=== PATIENT | male | born 2000 | race Caucasian/White ===

== ENCOUNTER 2020-06-12 07:08 | Day surgery (SDC) | payer OTHER, SELFPAY ==
[2020-06-12] VITALS (8 sets, daily range): BP systolic 127–162; BP diastolic 68–78; PULSE 60–75; RESP 15–16; TEMP 36.5–37; O2SAT 98–100; BMI 23.3
--- NOTE | 2020-06-12 | TUR_PTH ---
PATIENT: JENNIFER MARIE LOC: [facility] [place] U#:[id number] AGE/SX: 20/M ROOM: RE06/12/[address]: Dr. Misha Garcia MD : [id number] BED: DIS: 06/12/2020 SPEC #: [id number] RECD: 06/12/20 13:03 STATUS: EDILIA BECCA #: [id number] LILLY: 06/12/20 00:[address]: Misha Garcia DEPT: SURGICAL PATHOLOGY RECD BY: Enzo Galicia Tissues: Nasal turbinate, NOS Procedures: Decalcification bone/plaque Surgery Specimen Level III HEADER OPERATION: Septoplasty, resection inferior turbinates PRE-OP DIAGNOSIS: Deviated nasal septum; hypertrophy nasal turbinates; obstructive sleep apnea syndrome TISSUE SUBMITTED: Inferior turbinates MICROSCOPIC DIAGNOSIS Inferior turbinates, excision: Fragments of osseocartilaginous tissue with reparative change. AM:nanette 06/17/20 MICROSCOPIC DESCRIPTION Slides are reviewed. GROSS DESCRIPTION Received in fixative is one container labeled with the patient's name and designated inferior turbinates, nasal septal contents. The specimen consists of multiple fragments of cartilage and bone that in aggregate measure 5 x 3 x 0.3 cm. Also present in the cloth bag are scant fragments of umana soft tissue measuring 0.2 x 0.1 x <0.1 cm. The entire specimen is submitted in two cassettes after decalcification. / SJ:nanette 06/12/20 TC: 5 CPT: 66984, 68750
[2020-06-12] MEDS: Lidocaine 4% 50 ML Bottle (07:28)
[2020-06-12] MEDS: Lactated Ringers 1,000 ML 100 ML IV ×2 (07:39→11:02)
[2020-06-12 07:50] LABS: Hemoglobin 15.3 g/dL (13.0-16.5); Mean Corp Hgb Conc 32.6 g/dL (32-36); Mean Corpuscular Hgb 27.4 pg (27.0-32.0); Mean Corpuscular Volume 84.2 fL (80-94); Platelet Count 249 K/mm3 (150-450); RBC Distribution Width CV 12.2 % (11.6-14.6); RBC Distribution Width SD 37.2 fl (35.1-43.9); Red Blood Count 5.58 M/mm3 (4.6-6.2)
--- NOTE | 2020-06-12 08:17 | EKG12_ITS ---
Test Reason : PREOP Blood Pressure : / mmHG Vent. Rate : 066 BPM Atrial Rate : 066 BPM P-R Int : 134 ms QRS Dur : 112 ms QT Int : 410 ms P-R-T Axes : 065 030 055 degrees QTc Int : 429 ms Normal sinus rhythm with sinus arrhythmia Normal ECG No previous ECGs available Confirmed by RASHID FUNK ([id number]), video editor ANDREY GAN ([id number]) on 06/15/2020 12:44:22 PM Referred By: Misha Garcia Confirmed By:RASHID FUNK
[2020-06-12] MEDS: Oxymetazoline 0.05% 1 SPRAY SPRAY.BTL 15 SPRAY (09:28)
[2020-06-12] MEDS: Bacitracin 500 UNITS/GM PACKET (09:40)
--- NOTE | 2020-06-12 10:10 | DCINST_ITS ---
You will use the following diet at home:: No restrictions Your food should be the consistency of: Regular Discharge Activity: Return to Normal Activity, May not drive while taking narcotic pain medications. Call your doctor if your incision/area has: Sudden Increased Bleeding Call your doctor if you observe: Fever of 101 or Higher, Uncontrolled pain Allergies/Adverse Reactions: Allergies ceftriaxone [From Rocephin] Allergy (Verified 06/12/20 07:21) Rash Medications to take at Discharge NK 06/03/20 Primary Care Physician: JUAN KUMARI [Other] Test Results: Test results from this visit will be discussed in further detail at your follow- up appointment, if applicable. Please Follow Up With: Misha Garcia MD When: 5 days
--- NOTE | 2020-06-12 10:11 | PCM.OPRPT ---
Problem List (1) Deviated nasal septum Status: Chronic (2) Hypertrophy of both inferior nasal turbinates Status: Chronic Report of Operation Date of Procedure: 06/12/20 Pre-Operative Diagnosis: Deviated nasal septum, hypertrophy of inferior nasal turbinates Post-Operative Diagnosis: Same Surgery/Procedure Performed:: Septoplasty, submucous resection of bilateral inferior nasal turbinates Description of Surgical Findings:: Montrell is a 20-year-old male with chronic nasal obstruction failing appropriate medical therapy. Examination showed deviation nasal septum and hypertrophied inferior nasal turbinates and the above procedures offered hopes of improvement of these complaints. The risks of coronavirus in this period was discussed and he was agreeable to accept this risk in exchange for treatment of his chronic nasal obstruction. The risks, alternatives, potential complications, and benefits were discussed at length and any questions answered to the patient and/or caregiver's satisfaction. Witnessed informed consent was obtained in the office, and the patient and/or caregiver was agreeable to proceed. Procedure went as follows: The patient was identified in the preoperative holding and brought to the operating room, was placed under general anesthesia and intubated. When appropriate anesthesia was obtained, pledgets soaked in a 50-50 mixture of oxymetazoline and 4% topical lidocaine were placed to decongest the nasal mucosa. The nasal septum was then injected beginning on the left side with 1% lidocaine with 100,000 epinephrine for a total of 4 mL. The pledgets were then removed and the left nasal cavity examined. There was noted to be significant nasal septal deviation to the right. Using a 15 blade scalpel, a hemitransfixion incision was then made on the left side and using the Jayashree elevator a subperichondrial/periosteal flap was elevated. The septum was then transected at the bony cartilaginous junction and a similar flap raised on the contralateral side. Using a Odessa forceps, the septum was then sharply transected superiorly and the deviated portions removed with a Sophia forceps. Any inferior bony spur was then removed with a chisel allowing for midline placement of the nasal septum. The hemitransfixion incision was then closed with interrupted 4-0 chromic gut suture followed by a 4-0 plain quilting suture to reapproximate the mucosal flaps. Attention was then turned to the inferior nasal turbinates. Beginning on the left side, the anterior aspect of the inferior turbinate was then injected with 1% lidocaine with 100,000 epinephrine for a total of 2.5 mL bilaterally. Again beginning on the left side a 15 blade scalpel was used to create a stab incision in the anterior aspect of the turbinate. A caudal elevator was then used to elevate a submucosal plane. Using the microdebrider, the anterior bony and intervening submucosal tissue was then removed resulting in reduction of the inferior turbinate. Similar procedure was then completed on the contralateral side. Lentz splints were then applied after coating with bacitracin ointment and secured to the columella with a single 3-0 Prolene suture. The patient was then returned to anesthesia, was revived and extubated having tolerated the procedure well without complications. Type of Anesthesia:: General Anesthesiologist: Mariusz Bui Special Medications: none Specimen's removed: nasal septal and turbinate contents Drains: none Estimated Blood Loss (mL): 50 mL Fluids Replaced: 800 mL Grafts/Implants Used: Lentz splints - Complications none - Admit VTE Documentation VTE Present on Admission: No VTE Mechan Device Prophylaxis: SCD's VTE Pharm Prophylaxis ordered?: No
[2020-06-12] MEDS: Acetaminophen 500 MG Tablet PO (12:19)
== END 2020-06-12 13:06 | disposition home or self-care (01) ==
LOC: SDC 07:13 → AC 07:22
PROVIDERS: Anesthesiology; Referring Provider Otolaryngology; Visit Provider Otolaryngology
PROC: (CPT 30520; principal; 2020-06-12 08:15)
DX: J34.2 Deviated nasal septum (principal); Z11.59 Encounter for screening for other viral diseases; J34.3 Hypertrophy of nasal turbinates; G47.30 Sleep apnea, unspecified
CPT/HCPCS: 30140; 30520; 36415; 85027; 87635; 88304; 88311; 93005; G2023; J7120; J2405; U0003